=== PATIENT | female | born 1970 ===

== ENCOUNTER 2020-06-02 06:00 | Outpatient (RCR) | payer OTHER, SELFPAY | END 2020-06-16 23:59 | disposition home or self-care (01) | LOC: GPT 06:00 | DX: S82.202D Unspecified fracture of shaft of left tibia, subsequent encounter for closed fracture with routine healing (principal) | CPT/HCPCS: 97110; 97112; 97116; 97161; 97530 ==

== ENCOUNTER 2020-06-17 06:00 | Outpatient (RCR) | payer OTHER, SELFPAY | END 2020-07-16 23:59 | disposition home or self-care (01) | LOC: GPT 06:00 | DX: S82.142D Displaced bicondylar fracture of left tibia, subsequent encounter for closed fracture with routine healing (principal); X58.XXXD Exposure to other specified factors, subsequent encounter | CPT/HCPCS: 97110; 97112; 97116; 97530 ==

== ENCOUNTER → 2024-10-17 13:17 | Outpatient (BNVA) | payer OTHER, SELFPAY | PROVIDERS: Visit Provider Family Medicine | DX: M25.512 Pain in left shoulder (principal) | CPT/HCPCS: 73030 ==